=== PATIENT | female | born 1965 | race Caucasian/White ===

== ENCOUNTER → 2022-07-25 14:14 | Outpatient (BNVA) | payer MEDICAID, SELFPAY | PROVIDERS: PCP Internal Medicine Medical Oncology; Visit Provider Internal Medicine Pulmonary Disease | DX: J44.9 Chronic obstructive pulmonary disease, unspecified (principal); R91.8 Other nonspecific abnormal finding of lung field | CPT/HCPCS: 99202 ==

== ENCOUNTER 2022-08-08 13:45 | Outpatient (REF) | payer MEDICAID, SELFPAY ==
--- NOTE | ~2022-08-08 | CT_ITS ---
EXAMINATION: CT CHEST WITHOUT CONTRAST CLINICAL INFORMATION: Other nonspecific abnormal finding of lung field. COMPARISON: None TECHNIQUE: Multidetector volumetric CT imaging of the chest was done. Axial MIP volume rendering provided. Sagittal and coronal reformatted images were obtained. This CT examination was performed using dose optimization techniques as appropriate, variously including the following: *Automated exposure control *Adjustment of mA and/or kV according to patient size (this includes techniques or standardized protocols for targeted exams where dose is matched to indication/reason for exam; i.e. extremities or head) *Use of iterative reconstruction technique DLP: 272 mGy-cm FINDINGS: LUNGS: Moderate paraseptal and centrilobular emphysematous change of lungs. Bilateral apical pleural-parenchymal scarring and thickening. No acute airways disease. Central bronchial airways are open. No bronchiectasis. Lung Nodules: 1. There are multiple scattered calcified granuloma in the lungs bilateral. 2. There is a smooth bordered noncalcified 3 mm nodule left lower lobe image 283/531 series 6. 3. Smooth bordered 3 mm nodule associated with the right major fissure likely a subpleural lymph node. Image 334/531 series 6. MEDIASTINUM: The mediastinum is normal. CORONARY ARTERY CALCIFICATION: Minimal coronary artery calcifications. PLEURA: There is no pleural effusion. No pleural mass or thickening. AXILLA: No lymphadenopathy. UPPER ABDOMEN: Status post cholecystectomy. No abnormality of the visualized portions of the solid organs in the upper abdomen. OSSEOUS STRUCTURES: Unremarkable. CT/CT chest wo IV con IMPRESSION: 1. Emphysematous change of lungs. 2. Multiple calcified granulomas. 3. 3 mm nodule left lower lobe. 3 mm pleural-based nodule right major fissure likely a subpleural lymph node. Consider followup CT scan in 12 months. 2017 Fleischner Society Recommendations for Lung Nodule(s): Follow-Up based on size (average of long- and short-axis diameters). Use most suspicious nodule for followup. Multiple Solid lung nodules < 6 mm: Follow up management based on most suspicious nodule. In a low-risk patient, no routine follow-up imaging is recommended. In a high-risk patient, a non-contrast Chest CT at 12 months is optional. If performed and the nodule is stable at 12 months, no further follow-up is recommended. These guidelines do not apply to patients younger than 35 years, immunocompromised patients, and patients with cancer. F/u in patients with significant comorbidities as clinically warranted. For lung cancer screening, adhere to Lung-RADS guidelines. Reference: Radiology. 2017 Sloan; 284(1):228-243 Fleischner guidelines were followed.
== END 2022-08-08 13:46 | disposition home or self-care (01) ==
LOC: HO.CT 13:45
PROVIDERS: PCP Internal Medicine Medical Oncology; Visit Provider Internal Medicine Pulmonary Disease
DX: R91.8 Other nonspecific abnormal finding of lung field (principal)
CPT/HCPCS: 71250

== ENCOUNTER 2022-08-12 14:48 | Outpatient (REF) | payer MEDICAID, SELFPAY ==
--- NOTE | 2022-08-12 16:08 | PFT_ITS ---
Forced vital capacity 77%, FEV1 59%, FEV1/FVC ratio 60. FEF25/75 32%, and MVV 55%. Post bronchodilator therapy there, is a slight improvement in FEV1 and significant improvement in GBI33-47. Total lung capacity 106% and residual volume 138%. Diffusion capacity 75%. CONCLUSION: Moderately severe obstructive airway disorder. Partial reversibility with bronchodilator therapy is noted. Clinical correlation recommended. MD MARY Garsia/PATRICE / [id number]
== END 2022-08-12 14:49 | disposition home or self-care (01) ==
LOC: HO.RESP 14:48
PROVIDERS: PCP Internal Medicine Medical Oncology; Visit Provider Internal Medicine Pulmonary Disease
DX: J44.9 Chronic obstructive pulmonary disease, unspecified (principal); R06.00 Dyspnea, unspecified
CPT/HCPCS: 94060; 94727; 94729

== ENCOUNTER → 2022-08-13 15:10 | Outpatient (BNVA) | payer MEDICAID, SELFPAY | PROVIDERS: PCP Internal Medicine Medical Oncology; Visit Provider Internal Medicine Pulmonary Disease | DX: J44.9 Chronic obstructive pulmonary disease, unspecified (principal); R91.8 Other nonspecific abnormal finding of lung field | CPT/HCPCS: 99212 ==

== ENCOUNTER → 2022-12-05 14:14 | Outpatient (BNVA) | payer MEDICAID, SELFPAY | PROVIDERS: PCP Internal Medicine Medical Oncology; Visit Provider Internal Medicine Pulmonary Disease | DX: J44.9 Chronic obstructive pulmonary disease, unspecified (principal); R91.8 Other nonspecific abnormal finding of lung field | CPT/HCPCS: 99212 ==

== ENCOUNTER 2023-03-31 12:44 | Outpatient (REF) | payer MEDICAID, SELFPAY ==
--- NOTE | ~2023-03-31 | CT_ITS ---
EXAMINATION: CT CHEST WITHOUT CONTRAST CLINICAL INFORMATION: Other nonspecific abnormal finding of lung kimble. COMPARISON: None available. TECHNIQUE: Multidetector volumetric CT imaging of the chest was done. Axial MIP volume rendering provided. Sagittal and coronal reformatted images were obtained. This CT examination was performed using dose optimization techniques as appropriate, variously including the following: *Automated exposure control *Adjustment of mA and/or kV according to patient size (this includes techniques or standardized protocols for targeted exams where dose is matched to indication/reason for exam; i.e. extremities or head) *Use of iterative reconstruction technique DLP: 169 mGy-cm FINDINGS: RIVERBOAT CAPTAIN: Well-expanded lungs. LUNGS: There is mild centrilobular and paraseptal emphysema. There are multiple calcified pulmonary nodules likely granulomas throughout both lungs. There is a 3 mm noncalcified nodule left lower lobe image 320/5 and a 3 mm noncalcified nodule along right major fissure likely a subpleural lymph node image 393/5. No new nodules seen. MEDIASTINUM: The thyroid lobes are symmetric and normal. The central trachea and the bronchi are widely patent. The heart size and the great vessels are normal caliber. No pericardial effusion seen. CORONARY ARTERY CALCIFICATION: None visualized on this study. PLEURA: There is no pleural effusion. No pleural mass or thickening. AXILLA: No lymphadenopathy. UPPER ABDOMEN: Visualized liver, spleen, pancreas and bilateral adrenal glands are unremarkable. The gallbladder has been surgically removed. OSSEOUS STRUCTURES: There is mild mid and lower dorsal spine spondylosis. CT/CT chest wo IV con IMPRESSION: 1. Centrilobular and paraseptal emphysema. 2. Multiple calcified pulmonary nodules likely granulomas. 3. There are 3 mm noncalcified nodules in the left lower lobe and along the right major fissure likely subpleural lymph nodes. These nodules are stable. No new nodules seen. 4. No abnormal mediastinal or axillary lymphadenopathy seen. Fleischner guidelines were followed.
== END 2023-03-31 12:45 | disposition home or self-care (01) ==
LOC: HO.CT 12:44
PROVIDERS: PCP Internal Medicine Medical Oncology; Visit Provider Internal Medicine Pulmonary Disease
DX: R91.8 Other nonspecific abnormal finding of lung field (principal)
CPT/HCPCS: 71250

== ENCOUNTER 2024-04-19 14:25 | Outpatient (AMB) | payer MEDICAID, SELFPAY ==
[2024-04-19 14:27] VITALS: BP 122/72; PULSE 95; O2SAT 93; BMI 28.9
--- NOTE | 2024-04-19 14:27 | MHC.OFFVIS ---
Vital Signs 04/19/24 14:27 Height 5 ft 3 in Weight 163 lb 2.273 oz BMI 28.9 BP 122/72 Blood Pressure Location Rt brachial Position Sitting Pulse 95 Pulse Source Doppler Pulse Oximetry (%) 93 Oxygen Delivery Method Room Air Intake Visit Reasons: Shortness of breath Allergies amoxicillin [AMOXICILLIN] Allergy (Severe, Verified 12/05/22 14:16) DIFFICULTY BREATHING, REDNESS morphine [MORPHINE] Allergy (Unknown, Verified 12/05/22 14:16) CHEST TIGHTNESS penicillin Allergy (Unknown, Uncoded 07/25/22 14:17) Unknown HPI HPI Shortness of breath: Details: 58-year-old lady, active 45+ pack-year smoker followed for COPD, pulmonary nodules, and dyspnea on exertion, lost to follow-up for 15 months.? She continues to complain of a cough productive of yellowish sputum, with significant wheezing. She has been using Anoro and albuterol MDI with reasonable symptom control. She denies recent acute exacerbations. [facility] Social History (Updated 04/19/24 @ 14:32 by Lucina Walden Moriah) Patient Tobacco Use Status: Former Tobacco user Review of Systems Const Denies daytime sleepiness, Denies excessive sweating, Denies fatigue, Denies fever(s), Denies lethargy, Denies malaise, Denies night sweats, Denies snoring and Denies weight loss Eyes Denies blurry vision and Denies itchy eyes ENT Denies nasal congestion, Denies post nasal drip, Denies sinus pain, Denies sinus pressure and Denies other ( Thrush) Card Denies chest pain, Denies pedal edema, Denies dyspnea, Denies orthopnea and Denies paroxysmal nocturnal dyspnea Resp Denies cough, Denies hemoptysis, Denies excessive phlegm production, Denies dyspnea, Denies snoring and Denies wheezing GI Denies abdominal pain and Denies heartburn Musc Denies myalgias, Denies arthralgias and Denies joint swelling Skin/Breast Denies rash Neuro Denies memory loss and Denies seizure-like activity Psych Denies abnormal sleep pattern, Denies anxiety and Denies memory loss Endo Denies excessive sweating, Denies fatigue and Denies heat intolerance Darren/Lymph Denies easy bruising Aller/Immun Denies itchy eyes, Denies seasonal rhinorrhea and Denies wheezing Physical Exam Vital Signs: Last Vital Signs Pulse 95 04/19/24 14:27 BP 122/72 04/19/24 14:27 Pulse Ox 93 04/19/24 14:27 Oxygen Delivery Method Room Air 04/19/24 14:27 BMI result Body Mass Index 28.9 Const General: no acute distress and alert Nutritional Appearance: not obese Orientation/consciousness: Other orientation findings ( oriented) HEENT Head: Yes atraumatic Eyes General: appearance normal, both eyes and all related structures Sclerae: sclerae normal EOM: EOMs intact bilaterally Neck Neck: Yes supple Lymphatic: no lymphadenopathy noted Resp Effort & Inspection: normal respiratory effort and no use of accessory muscles Auscultation: clear to auscultation bilaterally Cardio Rate: regular rate Rhythm: regular rhythm Heart sounds: no gallops, no murmurs and no rubs Skin General skin exam: other ( warm) Extrem General: No clubbing, No cyanosis and No edema Assessment & Plan Assessment & Plan (1) COPD (chronic obstructive pulmonary disease): Code(s): J44.9 - Chronic obstructive pulmonary disease, unspecified Category: Medical Plan: Reasonable control on current regimen of Anoro and albuterol MDI / duo nebs. Continue current regimen. (2) Pulmonary nodules: Code(s): R91.8 - Other nonspecific abnormal finding of lung field Category: Medical Plan: Previously abnormal CT chest. Will repeat CT chest to evaluate for evolution of underlying pulmonary nodules. Orders: Orders CT chest wo IV con Today R91.8 - Other nonspecific abnormal finding of lung field Coding Level of Care Code Est Pt Level 4 (47455) Diagnoses COPD (chronic obstructive pulmonary disease) J44.9 Pulmonary nodules R91.8
== END 2024-04-19 14:40 | disposition home or self-care (01) ==
PROVIDERS: PCP Internal Medicine Medical Oncology; Referring Provider Internal Medicine Medical Oncology; Visit Provider Internal Medicine Pulmonary Disease
DX: J44.9 Chronic obstructive pulmonary disease, unspecified (principal); R91.8 Other nonspecific abnormal finding of lung field
CPT/HCPCS: 99214

== ENCOUNTER → 2024-04-19 14:25 | Outpatient (BNVA) | payer MEDICAID, SELFPAY | PROVIDERS: PCP Internal Medicine Medical Oncology; Visit Provider Internal Medicine Pulmonary Disease | DX: J44.9 Chronic obstructive pulmonary disease, unspecified (principal); R91.8 Other nonspecific abnormal finding of lung field | CPT/HCPCS: 99212 ==

== ENCOUNTER 2025-02-24 13:04 | Outpatient (REF) | payer MEDICAID, SELFPAY ==
--- NOTE | ~2025-02-24 | CT_ITS ---
CLINICAL HISTORY: R91.8 - Other nonspecific abnormal finding of lung field CT chest without contrast Comparison: CT/SC/SR - CT CHEST WO IV CON - 08/08/22 14:18 EDT Findings: 1.2 cm hypodense right thyroid nodule is present. There is no mediastinal, hilar, or axillary lymphadenopathy. The heart is normal in size. There is no pericardial effusion. Umvr-gu-anaabztn centrilobular and paraseptal emphysema is present. Multiple small bilateral lung nodules are seen measuring up to 5 mm in the right upper lobe (axial image 12 of series 3), unchanged since prior exam. No new pulmonary nodule is identified. Biapical lung scarring is present. Limited examination of the upper abdomen demonstrates cholecystectomy clips. 1.6 cm lipid rich right adrenal gland adenoma is present. Mild degenerative changes are seen in the spine. No acute osseous abnormality is identified. No aggressive lytic or blastic lesion is seen. IMPRESSION: 1. Multiple bilateral pulmonary nodules measuring up to 5 mm in the right upper lobe, unchanged since 08/08/2022. According to Fleischner society guidelines, no additional follow-up of this nodule is needed. 2. Onnz-ew-dqmtnocl pulmonary emphysema. Consider enrollment in annual low-dose CT screening. 3. 1.6 cm lipid rich right adrenal gland adenoma. This document has been electronically signed by: Jamie Valdez on 02/25/2025 09:27:27
--- OUTSIDE RECORDS SUMMARY | 2025-02-24 15:58 | XMS_ITS ---
Author Organization Ron Bañuelos III, MD Address [address] [place] [address] [place] [address] Care Team Providers Care Merchandise Collector Name Role Phone Ron Bañuelos Primary Care Provider Medications Medication SIG (Take, Route, Fr equency, Duration) Notes Start Date End Date Status levoFLOXacin 500 MG 1 tablet Orally twic e a day for 10 days 12/28/2024 01/07/2025 Active Social History Sex Assigned At : Social History Observation Description Sex Assigned At Female Encounters Encounter Location Date Provider Diagnosis Ron Bañuelos III, MD [address] [place] [address] [place] [address] 12/28/2024 Ron Bañuelos Plan Of Treatment Medication Medication Name Sig Start Date Stop Date Notes levoFLOXacin 500 MG 1 tablet Orally twic e a day for 10 days 12/28/2024 01/07/2025 Next Appt Details Provider Name:Ron Bañuelos, 03/25/2025 03:00:00 PM, [address] [place] [address] [place], [address], Progress Notes * Judy HOLTDOB:1965 ( 59 yo F)Acc No.[id number]:12/28/2024 Patient:?Judy HOLT :1965???Age:59 Y???Sex:Female Address:[address] [place] [address] , [place], [address] * Refills? Start levoFLOXacin Tablet, 500 MG, Orally, 20 Tablet, 1 tablet, twice a day, 10 days, Refills=0 * true * Date:? Generated for Lucien stacy/Edmond/Tessasmitting on:?02/24/2025 03:58 PM EDT
--- OUTSIDE RECORDS SUMMARY | 2025-02-24 15:59 | XMS_ITS | Patient Health Record ---
Author Organization Ron Bañuelos III, MD Address [address] [place] [address] [place] [address] Care Team Providers Care Dredge Runner Name Role Phone Ron Bañuelos Primary Care Provider Allergies Allergen (clinical drug ingredient) Drug/Non Drug Allergy documented on EMR Reaction Allergy Type Onset Date Status amoxicillin Amoxicillin Unknown Drug Allergy Act issa Results Component Value Reference Range Notes URINE DIP STICK Reviewed date:03/17/2024 03:06:25 PM Interpretation: Performing Lab: Notes/Report: SG 1.025 1.005 - 1.025 pH 5.0 5.0 - 9.0 INGA Negative Negative - NIT Negative Negative - PRO 15 Negative - Trace GLU Negative Negative - KET Negative Negative - UBG 0.2 0.1 - 1.8 JEFFREY 1 0.2 - 1.3 BLD Positive Negative - Reason For Referral No Information Medications Medication SIG (Take, Route, Frequency, Duration) Notes Start Date End Date Status Triamcinolone Acetonide 0.1 % 1 application Externally Twice a day 05/23/2023 Active Anoro Ellipta 62.5-25 MCG/ACT INHALE 1 PUFF EVERY DAY Inhalation Active Ventolin HFA 108 (90 Base) MCG/ACT INHALE 1 PUFF INTO THE LUNGS EVERY 4 HOURS FOR 90 DAYS Inhalation every 4 hrs for 90 days Active traZODone HCl 100 MG TAKE 1 TABLET BY [facility] EVERYDAY AT BEDTIME for 30 Active Immunizations Vaccine Route Administration Date Status Comme nts PPD (Planted) ID Intradermal 08/10/2018 Administered Social History Tobacco Use: Social History Observation Description Date Details (start date - stop date) Current Smoker NA - NA Sex Assigned At : Social History Observation Description Sex Assigned At Female Tobacco Use/Smoking Question Answer Notes Patient is a current smoker How often do you smoke cigarettes? every day How many cigarettes a day do you smoke? 5 or les s How soon after you wake up d o you smoke your first cigarette? 6-30 minutes Are you interested in quitting? Not ready to cody t Additional Findings: Tobacco User Light cigarett e smoker ((1-9 cigs/day) Alcohol Screen Question Answer Notes Did you have a drink contain ing alcohol in the past year? Yes How often did you have a dri nk containing alcohol in the past year? 2 to 3 times a week (3 points) How many drinks did you have on a typical day when you were drinking in the past year? 1 or 2 drinks (0 point) How often did you have 6 or more drinks on one occasion in the past year? Never (0 point) Points 3 Interpretation Positive Problems Problem Type SNOMED Code ICD Code Onset Dates Problem Status W/U Status Risk Notes Problem 804345135 Overweight (E66.3) Active confirmed Her body mass index is 29. [facility]. We made a plan to lose weight at a rate of one half of a pound per week through a diet restricted in fat calories and sodium combiined with regular physical activity. Problem 576622572896249 Right hip pain (M25.551) Active confirmed The pain in her right hip is much better. She is walking without difficulty. She uses an occasional ibuprofen. She does not wish to see orthopedics. Problem 172506818 Episodic tension-type headache, not intractable (G44.219) Active confirmed The headaches have substantially resolved and no additional therapy is necessary today. Problem 91955576 Tobacco dependence (F17.200) Active confirmed She admits to 6 cigarettes per day. We have discussed various strategies for smoking cessation. Problem 93841128 COPD (chronic obstructive pulmonary disease) (J44.9) Active confirmed She continu es to smoke about 5 ciggarettes a day. Her oxygen satuuratiion today was normal. She has not had any recent exxacerbations despite it being pollen seasonn. Problem 01861187 Penicillin allergy (Z88.0) Active confirmed Problem Osteoarthritis (386772989) Osteoarthritis, unspecified osteoarthritis type, unspecified site (M19.90) Active confirmed He has mild arthritic symptoms of shoulders and hands. She is going to use acetaminophen and ibuprofen. Problem 948672710 History of cholecystectomy (Z90.49) Active confirmed Problem Urine incontinence (369305720) Urine incontinence (R32) Active confirmed She continues to have occasional urinary incontinence, primarily with coughing. She declined urology referral. Problem 184501249 Asthmatic bronchitis (J45.909) Active confirmed She denies any wheezing, but has a paroxysmal cough. She was given cough medication. A follow-up visit was arranged. 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) Active confirmed Vital Signs Heart Rate 80 /min 03/17/2024 Temperature 98.4 degrees Fahrenheit 03/17/2024 Blood pressure diastolic 76 mm Hg 03/17/2024 Height 63.5 in 03/17/2024 Blood pressure systolic 128 mm Hg 03/17/2024 Weight 164 lbs 03/17/2024 BMI 28.59 kg/m2 03/17/2024 Encounters Encounter Location Date Provider Diagnosis Ron Bañuelos III, MD [address] [place] [address] [place] [address] 03/17/2024 Ron Bañuelos COPD (chronic obstructive pulmonary disease) J44.9 ; Overweight E66.3 ; Osteoarthritis, unspecified osteoarthritis type, unspecified site M19.90 ; Encounter for screening mammogram for malignant neoplasm of breast Z12.31 and Right hip pain M25.551 Ron Bañuelos III, MD [address] [place] [address] [place] [address] 03/08/2024 Ron Bañuelos III, MD [address] [place] [address] [place] [address] 12/28/2024 Ron Bañuelos III, MD [address] [place] [address] [place] [address] 12/28/2024 Ron Bañuelos Assessments Encounter Date Diagnosis (ICD Code) Assessment Notes Treat ment Notes Treatment Clinical Notes 03/17/2024 Overweight (ICD-10 - E66.3) Her body mass index is 29. We reviewed her weight loss strateegy diet and nutrition. We made a plan to lose weight at a rate of one half of a pound per week through a diet restricted in fat calories and sodium combiined with regular physical activity. 03/17/2024 COPD (chronic obstructive pulmonary disease) (ICD-10 - J44.9) She continues to smoke about 5 ciggarettes a day. Her oxygen satuuratiion today was normal. She has not had any recent exxacerbations despite it being pollen seasonn. 03/17/2024 Osteoarthritis, unspecified osteoarthritis type, unspecified site (ICD-10 - M19.90) He has mild arthritic symptoms of shoulders and hands. She is going to use acetaminophen and ibuprofen. 03/17/2024 Encounter for screening mammogram for malignant neoplasm of breast (ICD-10 - Z12.31) She is overrdue for her mammogram which we'll schedule. 03/17/2024 Right hip pain (ICD-10 - M25.551) The pain in her right hip is much better. She is walking without difficulty. She uses an occasional ibuprofen. She does not wish to see orthopedics. Plan Of Treatment Pending Test Test Name Order Date PROFILE, FASTING (COMPREHENSIVE METABOLI C) 03/17/2024 PROFILE, RANDOM (COMPREHENSIVE METABOLIC ) 11/19/2022 LIPID PANEL 11/19/2022 LIPID PANEL 03/17/2024 CBC w DIFF 11/19/2022 CBC w DIFF 03/17/2024 XR CHEST 2 VIEW PA & LAT 01/01/2016 XR HIP LT 12/07/2018 MAMMOGRAM DIGITAL BILATERAL SCREEN 07/28 MAMMOGRAM DIGITAL BILATERAL SCREEN 07/02 MM tomosynthesis screening BI 03/17/2024 Next Appt Details Provider Name:Ron Bañuelos, 03/25/2025 03:00:00 PM, [address] [facility] [place], [place], [address], Insurance Providers Payer Name Payer Address Payer Phone Subscriber Number Group Number Insured Name Patient Relationship to Insured Coverage Start Date Coverage End Date [place] [address] [place] [id number] [phone] [id number] Judy Ramirez Self - patient is the insured Medical (General) History Medical History History ICD Code COPD chronic bronchitis history of dental infections penicillin allergy history of cholelithiasis dental extractions tobacco dependence Surgical History Surgery Date(Month/Year) [id number] dental extractions cholecystectomy 1990
--- OUTSIDE RECORDS SUMMARY | 2025-02-24 15:59 | XMS_ITS ---
Author Organization Ron Bañuelos III, MD Address [address] [place] [address] [place] [address] Care Team Providers Care Hand Tennis Ball Coverer Name Role Phone Ron Bañuelos Primary Care Provider REASON FOR VISIT Needs call back from Social History Sex Assigned At : Social History Observation Description Sex Assigned At Female Encounters Encounter Location Date Provider Diagnosis Ron Bañuelos III, MD [address] [place] [address] [place] [address] 12/28/2024 Ron Bañuelos Plan Of Treatment Next Appt Details Provider Name:Ron Bañuelos, 03/25/2025 03:00:00 PM, [address] [place] [address] [place], [address], Progress Notes * Judy HOLTDOB:1965 ( 59 yo F)Acc No.[id number]:12/28/2024 Patient:?Judy HOLT :1965???Age:59 Y???Sex:Female Address:[address] [place] [address] [place], [address] * true * Date:? Generated for Printi ng/Farickig/eTransmitting on:?02/24/2025 03:58 PM EDT
--- OUTSIDE RECORDS SUMMARY | 2025-02-24 15:59 | XMS_ITS ---
Author Organization Ron Bañuelos III, MD Address [address] [address] [place] [address] Care Team Providers Care Glassblower Name Role Phone Ron Bañuelos Primary Care Provider [phone] Allergies Allergen (clinical drug ingredient) Drug/Non Drug Allergy documented on EMR Reaction Allergy Type Onset Date Status amoxicillin Amoxicillin Unknown Drug Allergy Act issa REASON FOR VISIT follow up Medications Medication SIG (Take, Route, Frequency, Duration) Notes Start Date End Date Status Triamcinolone Acetonide 0.1 % 1 application Externally Twice a day 05/23/2023 Active Anoro Ellipta 62.5-25 MCG/ACT INHALE 1 PUFF EVERY DAY Inhalation Active traZODone HCl 100 MG TAKE 1 TABLET BY [facility] EVERY DAY AT BEDTIME Active Ventolin HFA 108 (90 Base) MCG/ACT INHALE 1 PUFF INTO THE LUNGS EVERY 4 HOURS NEEDED FOR 90 DAYS Active Social History Tobacco Use: Social History Observation [...] User Light cigarett e smoker ((1-9 cigs/day) Encounters Encounter Location Date Provider Diagnosis Ron Bañuelos III, MD [address] [place] [address] [place] [address] 07/28/2024 Ron Bañuelos Plan Of Treatment Medication Medication Name Sig Start Date Stop Date Notes Triamcinolone Acetonide 0.1 % 1 applicat ion Externally Twice a day 05/23/2023 Anoro Ellipta 62.5-25 MCG/ACT INHALE 1 P UFF EVERY DAY Inhalation traZODone HCl 100 MG TAKE 1 TABLET BY [facility] EVERY DAY AT BEDTIME Ventolin HFA 108 (90 Base) MCG/ACT INHALE 1 PUFF INTO THE LUNGS EVERY 4 HOURS NEEDED FOR 90 DAYS Next Appt Details Provider Name:Ron Bañuelos, 03/25/2025 03:00:00 PM, [address] [place] [address] DAMARI MATTHEWS, JOSETTE PIERSON, [address], Progress Notes * Judy HOLTDOB:1965 ( 59 yo F)Acc No.[id number]:07/28/2024 Progress Notes Patient:?Judy HOLT Provider:?Ron Bañuelos MD :1965???Age:58 Y???Sex:Female D ate:07/28/2024 Address:[address] [place] [address] HEATHER MATTHEWSSULLIGENT, [id number] Subjective: * Chief Complaints: * ???1. Follow up. * HPI: ???COVID-19 Screening:?Questions?Have you had any new onset fever, chills, cough, congestion, sore throat, shortness of breath, muscle aches??No ?Have you been exposed to the virus within the last 10 days??No ?Have you travelled internationally in the last 10 days??No ?Have you been exposed to COVID-19 in the past??No * ROS:?General/Constitutional:?pain?only normal aches and pains.?Chills?denies.?Fatigue?admits.?Fever?denies.?ENT:?Decreased hearing?denies.?Respiratory:?Cough?denies.?Cardiovascular:?Chest pain with exertion?denies.?Dyspnea on exertion?denies.?Shortness of breath?denies.?Gastrointestinal:?Constipation?denies.?Decreased appetite?denies.?Diarrhea?denies.?Heartburn?denies.?Nausea?denies.?Rectal bleeding?denies.?Vomiting?denies.?Hematology:?bruising?denies.?petechiae?denies.?Swollen glands?none have been noted.?Genitourinary:?Frequent urination?denies.?Musculoskeletal:?Muscle aches?denies.?Painful joints?denies.?Sciatica?denies.?Weakness?denies.?Skin:?Itching?denies.?Rash?denies.?Skin lesion(s)?denies.?Neurologic:?Difficulty speaking?denies.?Dizziness?denies.?Headache?denies.?Low back pain?denies.?Psychiatric:?Depressed mood?denies.? * Medical History:?COPD, Chron ic bronchitis, History of dental infections, Penicillin allergy, History of cholelithiasis, Dental extractions, Tobacco dependence. * Surgical History:?cholecyste ctomy 1989, dental extractions , [id number] . * Hospitalization/Major Diagno stic Procedure:?Denies Past Hospitalization. * Family History:?Father: dece ased, lung cancer, diagnosed with Cancer.?Mother: alive, OA,obesity, hypertension, sleep apnea, hyperlipidemia.?2 brother(s) , 1 sister(s) - healthy. 1 son(s) , 2 daughter(s) - healthy. .? Her brothers and sisters are well. Her father of lung cancer. Her children are healthy and well. Tony is 33, Nadege is 32 and Ai is 25. She has 5 healthy and well grandchildren. * Social History:?Tobacco Use:?Tobacco Use/Smoking?Patient is a?current smoker ?How often do you smoke cigarettes??every day ?How many cigarettes a day do you smoke??5 or less ?How soon after you wake up do you smoke your first cigarette??6-30 minutes ?Are you interested in quitting??Not ready to quit ?Additional Findings: Tobacco User?Light cigarette smoker ((1-9 cigs/day) ???She was born in [place] and lives there. She is unemployed. She had been to [place] for one year after a 15 year engagement. This was her third marriage. She has smoked cigarettes for many years but does not drink alcohol or take drugs. * Medications:?Taking Anoro El lipta 62.5-25 MCG/ACT Aerosol Powder Breath Activated INHALE 1 PUFF EVERY DAY Inhalation , Taking Triamcinolone Acetonide 0.1 % Cream 1 application Externally Twice a day , Taking Ventolin HFA 108 (90 Base) MCG/ACT Aerosol Solution INHALE 1 PUFF INTO THE LUNGS EVERY 4 HOURS NEEDED FOR 90 DAYS , Taking traZODone HCl 100 MG Tablet TAKE 1 TABLET BY MOUTH EVERY DAY AT BEDTIME , Medication List reviewed and reconciled with the patient * Allergies:?Amoxicillin. Objective: * Vitals:? * Examination: ???General Examination: ?GENERAL APPEARANCE:?pleasant, well nourished, well developed, in no acute distress, calm and relaxed.?HEAD:?atraumatic, normocephalic.?EYES:?eomi, perrla, anicteric, conjugate.?EARS:?normal.?NOSE:?septum intact.?ORAL CAVITY:?normal, unremarkable.?NECK/THYROID:?no jugular venous distention, no carotid bruit, thyroid normal.?LYMPH NODES:?no enlarged lymph nodes,spleen normal.?SKIN:?no suspicious lesions, anicteric.?HEART:?no clicks, gallops, murmurs, or rubs, regular rhythm, S1, S2 normal, no s3, or vascular bruits.?LUNGS:?clear to auscultation .?BREASTS:??no masses palpable bilaterally.?ABDOMEN:?bowel sounds normal, no ascites, no organomegaly, no mass.?RECTAL EXAM:?not examined.?MUSCULOSKELETAL:?extremities unremarkable, no clubbing, cyanosis or edema.?PERIPHERAL PULSES:?normal.?NEUROLOGIC:?alert and oriented, cranial nerves 2-12 grossly intact, deep tendon reflexes 2+ symmetrical, motor strength normal upper and lower extremities, sensory exam intact.?PSYCH:?alert, oriented.? Assessment: Plan: * Treatment: * Images: * The named appointment provid er may or may not be the originator of this progress note, and it is not deemed complete until electronically signed by the appointment provider. Sign off status: Pending * Provider:?Ron Bañuelos MD Date:?07/11 Generated for Gustavoi tawanna/Edmond/eTransmitting on:?02/24/2025 03:58 PM EDT History and Physical Notes * HPI (History of Present Illness) Category Sub-Category Detail Notes COVID-19 Screening Questions Have you had any new onset fever, chills, cough, congestion, sore throat, shortness of breath, muscle aches?: No Have you been exposed to the virus withi n the last 10 days?: No Have you travelled internationally in [facility] last 10 days?: No Have you been exposed to COVID-19 in the past?: No Examination Category Sub-Category Detail Notes General Examination GENERAL APPEARANCE: pleasant , well nourished, well developed, in no acute distress, calm and relaxed HEAD: atraumatic, normocep halic EYES: eomi, perrla, anicte laverne, conjugate EARS: normal NOSE: septum intact NECK/THYROID: no jugular venous di stention, no carotid bruit, thyroid normal HEART: no clicks, gallops, murmurs, or rubs, regular rhythm, S1, S2 normal, no s3, or vascular bruits LUNGS: clear to auscultatio n ABDOMEN: bowel sounds normal, no ascites, no organomegaly, no mass NEUROLOGIC: alert and oriented, cranial nerves 2-12 grossly intact, deep tendon reflexes 2+ symmetrical, motor strength normal upper and lower extremities, sensory exam intact SKIN: no suspicious lesion s, anicteric PERIPHERAL PULSES: normal BREASTS: no masses palpable b ilaterally MUSCULOSKELETAL: extremities unremark able, no clubbing, cyanosis or edema LYMPH NODES: no enlarged lymph no keyla,spleen normal RECTAL EXAM: not examined PSYCH: alert, oriented ORAL CAVITY: normal, unremarkable
== END 2025-02-24 13:05 | disposition home or self-care (01) ==
LOC: HO.CT 13:04
PROVIDERS: PCP Internal Medicine Medical Oncology; Visit Provider Internal Medicine Pulmonary Disease
DX: R91.8 Other nonspecific abnormal finding of lung field (principal)
CPT/HCPCS: 71250

== ENCOUNTER → 2025-02-24 13:06 | Outpatient (BNV) | payer MEDICAID, SELFPAY | PROVIDERS: PCP Internal Medicine Medical Oncology; Visit Provider Radiology Vascular & Interventional Radiology | DX: R91.8 Other nonspecific abnormal finding of lung field (principal) | CPT/HCPCS: 71250 ==

== ENCOUNTER 2025-07-05 15:20 | Outpatient (AMB) | payer MEDICAID, SELFPAY ==
--- OUTSIDE RECORDS SUMMARY | 2024-12-28 05:08 | XMS_ITS ---
Author Organization Ron Bañuelos III, MD Address [address] [place] [address] Care Team Providers Care Art Specialist Name Role Phone Ron Bañuelos Primary Care Provider REASON FOR VISIT Needs call back from Social History Sex Assigned At : Social History Observation Description Sex Assigned At Female Encounters Encounter Location Date Provider Diagnosis Ron Bañuelos III, MD [address] [place] [address] [place] [address] 12/28/2024 Ron Bañuelos Plan Of Treatment Next Appt Details Provider Name:Ron Bañuelos, 07/15/2025 02:30:00 PM, [address] [place] [address] [place], [address], Provider Name:Ron Bañuelos, 11/04/2025 02:15:00 PM, [address] [place] [address] [place], [address], Progress Notes * Judy HOLTDOB:1965 ( 59 yo F)Acc No.[id number]:12/28/2024 Patient: Judy HAMILTON :1965 A ge:59 Y S ex:Female Address:[address] [place] [address] [place], [address] * true * Date: Generated for Lucien stacy/Edmond/Robert on: 0 07/05/2025 04:13 PM EDT
--- OUTSIDE RECORDS SUMMARY | 2024-12-28 06:27 | XMS_ITS ---
Author Organization Ron Bañuelos III, MD Address [address] [address] Care Team Providers Care Restaurant And Bar Manager Name Role Phone Ron Bañuelos Primary Care Provider Medications Medication SIG (Take, Route, Fr equency, Duration) Notes Start Date End Date Status levoFLOXacin 500 MG 1 tablet Orally twic e a day for 10 days 12/28/2024 01/07/2025 Active Social History Sex Assigned At : Social History Observation Description Sex Assigned At Female Encounters Encounter Location Date Provider Diagnosis Ron Bañuelos III, MD [address] [place] [address] [place] [address] 12/28/2024 Ron Bañuelos Plan Of Treatment Medication Medication Name Sig Start Date Stop Date Notes levoFLOXacin 500 MG 1 tablet Orally twic e a day for 10 days 12/28/2024 01/07/2025 Next Appt Details Provider Name:Ron Bañuelos, 07/15/2025 02:30:00 PM, [address] [facility] [place], [address], Provider Name:Ron Bañuelos, 11/04/2025 02:15:00 PM, [address] [facility] [place], [address], Progress Notes * Judy HOLTDOB:1965 ( 59 yo F)Acc No.[id number]:12/28/2024 Patient: Judy HAMILTON :1965 A ge:59 Y S ex:Female Address:[address] [place] [address] , [facility] [place], [address] * Refills Start levoFLOXacin Tablet, 500 MG, Orally, 20 Tablet, 1 tablet, twice a day, 10 days, Refills=0 * true * Date: Generated for Lucien stacy/Edmond/Vigneshitting on: 0 07/05/2025 04:13 PM EDT
--- OUTSIDE RECORDS SUMMARY | 2025-03-25 11:00 | XMS_ITS ---
Author Organization Ron Bañuelos III, MD Address [address] [place] [address] Care Team Providers Care Vp Platforms Name Role Phone Ron Bañuelos Primary Care Provider Allergies Allergen (clinical drug ingredient) Drug/Non Drug Allergy documented on EMR Reaction Allergy Type Onset Date Status amoxicillin Amoxicillin Unknown Drug Allergy Act issa REASON FOR VISIT Annual Exam Medications Medication SIG (Take, Route, Frequency, Duration) Notes Start Date End Date Status Ventolin HFA 108 (90 Base) MCG/ACT INHALE 1 PUFF INTO THE LUNGS EVERY 4 HOURS FOR 90 DAYS Inhalation every 4 hrs Active traZODone HCl 100 MG TAKE 1 TABLET BY [facility] EVERYDAY AT BEDTIME Active Anoro Ellipta 62.5-25 MCG/ACT INHALE 1 PUFF EVERY DAY Inhalation Active Triamcinolone Acetonide 0.1 % 1 application Externally Twice a day 05/23/2023 Active Social History Tobacco Use: Social History [...] Date Provider Diagnosis Ron Bañuelos III, MD [address] [place] [address] [place] [address] 03/25/2025 Ron Bañuelos Plan Of Treatment Medication Medication Name Sig Start Date Stop Date Notes Ventolin HFA 108 (90 Base) MCG/ACT INHALE 1 PUFF INTO THE LUNGS EVERY 4 HOURS FOR 90 DAYS Inhalation every 4 hrs traZODone HCl 100 MG TAKE 1 TABLET BY [facility] EVERYDAY AT BEDTIME Anoro Ellipta 62.5-25 MCG/ACT INHALE 1 P UFF EVERY DAY Inhalation Triamcinolone Acetonide 0.1 % 1 applicat ion Externally Twice a day 05/23/2023 Next Appt Details Provider Name:Ron Bañuelos, 07/15/2025 02:30:00 PM, [address] [place] [address] DAMARI MATTHEWS, JOSETTE ROBBINS, [phone], Provider Name:Ron Bañuelos, 11/04/2025 02:15:00 PM, [address] [place] [address] [address], [place], [phone], Progress Notes * Judy HOLTDOB:1965 ( 59 yo F)Acc No.[id number]:03/25/2025 Progress Notes Patient: Judy HAMILTON Provider: Betty Bañuelos MD :1965 A ge:59 Y S ex:Female Date:03/25/2025 Address:[address] [place] [address] HEATHER MATTHEWS [id number] Subjective: * Chief Complaints: * 1 . Annual Exam. * HPI: C OVID-19 Screening: Questions H ave you had any new onset fever, chills, cough, congestion, sore throat, shortness of breath, muscle aches? N o * ROS: G eneral/Constitutional: pain o nly normal aches and pains. C hills d enies.?Fatigue a dmits. F ever d enies. E NT: Decreased hearing d enies. R espiratory: Cough d enies. C ardiovascular: Chest pain with exertion d enies. D yspnea on exertion?denies. S hortness of breath d enies. G astrointestinal: Constipation d enies. D ecreased appetite d enies.?Diarrhea d enies. H eartburn d enies. N ausea d enies. R ectal bleeding?denies. V omiting d enies. H ematology: bruising d enies. p etechiae d enies. S wollen glands n one have been noted. G enitourinary: Frequent urination d enies. M usculoskeletal: Muscle aches d enies. P ainful joints d enies. S ciatica d enies. W eakness d enies. S kin: Itching d enies. R julieth d enies. S kin lesion(s)?denies. N eurologic: Difficulty speaking d enies. D izziness d enies.?Headache d enies. L ow back pain d enies. P sychiatric: Depressed mood d enies. * Medical History: C OPD, Chronic bronchitis, History of dental infections, Penicillin allergy, History of cholelithiasis, Dental extractions, Tobacco dependence. * Surgical History: c holecystectomy 1989, dental extractions , [id number] . * Hospitalization/Major Diagno stic Procedure: D enies Past Hospitalization. * Family History: F ather: , lung cancer, diagnosed with Cancer. M other: alive, OA,obesity, hypertension, sleep apnea, hyperlipidemia. 2 brother(s) , 1 sister(s) - healthy. 1 son(s) , 2 daughter(s) - healthy. . Her brothers and sisters are well. Her father of lung cancer. Her children are healthy and well. Tony is 33, Nadege is 32 and Ai is 25. She has 5 healthy and well grandchildren. * Social History: T obacco Use: T obacco Use/Smoking P atient is a c urrent smoker H ow often do you smoke cigarettes? e very day H ow many cigarettes a day do you smoke? 5 or less H ow soon after you wake up do you smoke your first cigarette? 6 -30 minutes A re you interested in quitting? N ot ready to quit A dditional Findings: Tobacco User L ight cigarette smoker ((1-9 cigs/day) S he was born in [place] and lives there. She is unemployed. She had been to [place] for one year after a 15 year engagement. This was her third marriage. She has smoked cigarettes for many years but does not drink alcohol or take drugs. * Medications: T gertrudis Anoro Ellipta 62.5-25 MCG/ACT Aerosol Powder Breath Activated INHALE 1 PUFF EVERY DAY Inhalation , Taking Triamcinolone Acetonide 0.1 % Cream 1 application Externally Twice a day , Taking traZODone HCl 100 MG Tablet TAKE 1 TABLET BY MOUTH EVERYDAY AT BEDTIME , Taking Ventolin HFA 108 (90 Base) MCG/ACT Aerosol Solution INHALE 1 PUFF INTO THE LUNGS EVERY 4 HOURS FOR 90 DAYS Inhalation every 4 hrs , Medication List reviewed and reconciled with the patient * Allergies: A moxicillin. Objective: * Vitals: * Examination: G eneral Examination: GENERAL APPEARANCE: p leasant, well nourished, well developed, in no acute distress, calm and relaxed. HEAD: a traumatic, normocephalic. EYES: e janeth, perrla, anicteric, conjugate. EARS: n ormal. NOSE: s eptum intact. ORAL CAVITY: n ormal, unremarkable. NECK/THYROID: n o jugular venous distention, no carotid bruit, thyroid normal. LYMPH NODES: n o enlarged lymph nodes,spleen normal. SKIN: n o suspicious lesions, anicteric. HEART: n o clicks, gallops, murmurs, or rubs, regular rhythm, S1, S2 normal, no s3, or vascular bruits. LUNGS: c lear to auscultation . BREASTS: no masses palpable bilaterally. ABDOMEN: b owel sounds normal, no ascites, no organomegaly, no mass. RECTAL EXAM: n ot examined. MUSCULOSKELETAL: e xtremities unremarkable, no clubbing, cyanosis or edema. PERIPHERAL PULSES: n ormal. NEUROLOGIC: a lert and oriented, cranial nerves 2-12 grossly intact, deep tendon reflexes 2+ symmetrical, motor strength normal upper and lower extremities, sensory exam intact. PSYCH: a lert, oriented. Assessment: Plan: * Treatment: * Images: * The named appointment provid er may or may not be the originator of this progress note, and it is not deemed complete until electronically signed by the appointment provider. Sign off status: Pending * Provider: Betty Bañuelos MD Date: 0 03/25/2025 Generated for Lucien stacy/Edmond/eTransmitting on: 0 07/05/2025 04:14 PM EDT History and Physical Notes * HPI (History of Present Illness) Category Sub-Category Detail Notes COVID-19 Screening Questions Have you had any new onset fever, chills, cough, congestion, sore throat, shortness of breath, muscle aches?: No Examination Category Sub-Category Detail Notes General [...]
[2025-07-05 15:21] VITALS: BP 120/58; PULSE 94; O2SAT 94; BMI 25.3
--- NOTE | 2025-07-05 15:21 | MHC.OFFVIS ---
Vital Signs 07/05/25 15:21 Height 5 ft 3 in Weight 143 lb BMI 25.3 BP 120/58 L Blood Pressure Location Lt brachial Position Sitting Pulse 94 Pulse Source Pulse Oximeter Pulse Oximetry (%) 94 Oxygen Delivery Method Room Air Intake Visit Reasons: Pulmonary Nodules Allergies amoxicillin (AMOXICILLIN) Allergy (Severe, Verified 12/05/22 14:16) DIFFICULTY BREATHING, REDNESS morphine (MORPHINE) Allergy (Unknown, Verified 12/05/22 14:16) CHEST TIGHTNESS penicillin Allergy (Unknown, Uncoded 07/25/22 14:17) Unknown HPI HPI Pulmonary Nodules: Details: 59-year-old lady, active 45+ pack-year smoker followed for COPD, pulmonary nodules, and dyspnea on exertion, lost to follow-up for 15 months.? Patient continues to use Anoro, duo nebs, and albuterol MDI overall with reasonable control of her underlying symptoms. She does complain of recent exacerbation symptomatic with wheezing. Her follow-up CT chest showed pulmonary nodules stable for approximately 3 years. [facility] Social History (Updated 04/19/24 @ 14:32 by Lucina Walden [facility]) Patient Tobacco Use Status: Former Tobacco user Review of Systems Const Denies daytime sleepiness, Denies excessive sweating, Denies fatigue, Denies fever(s), Denies lethargy, Denies malaise, Denies night sweats, Denies snoring and Denies weight loss Eyes Denies blurry vision and Denies itchy eyes ENT Denies nasal congestion, Denies post nasal drip, Denies sinus pain, Denies sinus pressure and Denies other ( Thrush) Card Denies chest pain, Denies pedal edema, Denies dyspnea, Denies orthopnea and Denies paroxysmal nocturnal dyspnea Resp Denies cough, Denies hemoptysis, Denies excessive phlegm production, Denies dyspnea, Denies snoring and Denies wheezing GI Denies abdominal pain and Denies heartburn Musc Denies myalgias, Denies arthralgias and Denies joint swelling Skin/Breast Denies rash Neuro Denies memory loss and Denies seizure-like activity Psych Denies abnormal sleep pattern, Denies anxiety and Denies memory loss Endo Denies excessive sweating, Denies fatigue and Denies heat intolerance Darren/Lymph Denies easy bruising Aller/Immun Denies itchy eyes, Denies seasonal rhinorrhea and Denies wheezing Physical Exam Vital Signs: Last Vital Signs Pulse 94 07/05/25 15:21 BP 120/58 L 07/05/25 15:21 Pulse Ox 94 07/05/25 15:21 Oxygen Delivery Method Room Air 07/05/25 15:21 BMI result Body Mass Index 25.3 Const General: no acute distress and alert Nutritional Appearance: not obese Orientation/consciousness: Other orientation findings ( oriented) HEENT Head: Yes atraumatic Eyes General: appearance normal, both eyes and all related structures Sclerae: sclerae normal EOM: EOMs intact bilaterally Neck Neck: Yes supple Lymphatic: no lymphadenopathy noted Resp Effort & Inspection: normal respiratory effort and no use of accessory muscles Auscultation: clear to auscultation bilaterally Cardio Rate: regular rate Rhythm: regular rhythm Heart sounds: no gallops, no murmurs and no rubs Skin General skin exam: other ( warm) Extrem General: No clubbing, No cyanosis and No edema Assessment & Plan Assessment & Plan (1) COPD (chronic obstructive pulmonary disease): Code(s): J44.9 - Chronic obstructive pulmonary disease, unspecified Category: Medical Plan: Moderate to severe COPD with overall reasonable controll on current regimen of Anoro, duo nebs, and albuterol MDI. Continue current regimen. Will treat acute exacerbation with a course of prednisone. (2) Personal history of nicotine dependence: Code(s): Z87.891 - Personal history of nicotine dependence Category: Medical Plan: Results of follow-up CT chest reviewed, essentially stable pulmonary nodules over the course of the last 3 years. Will continue to follow-up with lung cancer screening program. Orders: Referrals Lung Cancer Screening Referral Z87.891 - Personal history of nicotine dependence Medications: New prednisone 40 mg (2 x 20 mg) PO DAILY 14 tabs 0RF Coding Level of Care Code Est Pt Level 4 (95643) Diagnoses COPD (chronic obstructive pulmonary disease) J44.9 Personal history of nicotine dependence Z87.891
--- OUTSIDE RECORDS SUMMARY | 2025-07-05 16:14 | XMS_ITS | Patient Health Record ---
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 Name Role Phone Ron Bañuelos Primary Care Provider Allergies Allergen (clinical drug ingredient) Drug/Non Drug Allergy documented on EMR Reaction Allergy Type Onset Date Status amoxicillin Amoxicillin Unknown Drug Allergy Act issa Results Component Value Reference Range Notes CT chest wo con (Not yet rev iewed by provider) Interpretation: Performing Lab: Notes/Report: [address] [address] [address] Scan Report Signed Patient: Judy Ramirez MR#: [id number] 3 : 1965 Acct:[id number] Age/Sex: 59 / F ADM Date: 02/24/25 Loc: HO.CT Attending Dr: Ivan Prasad MD Ordering Physician: Ivan Prasad MD Date of Service: 02/24/25 Procedure(s): CT chest wo IV con Accession Number(s): [id number] cc: Ron Bañuelos MD; Iavn Prasad MD Report Number: [id number]: Total DLP = 145.00 mGy-cm CLINICAL HISTORY: R91.8 - Other nonspecific abnormal finding of lung field CT chest without contrast Comparison: CT/IN/SR - CT CHEST WO IV CON - 08/08/22 14:18 EDT Findings: 1.2 cm hypodense right thyroid nodule is present. There is no mediastinal, hilar, or axillary lymphadenopathy. The heart is normal in size. There is no pericardial effusion. Dpbu-wk-zzrfukli centrilobular and paraseptal emphysema is present. Multiple small bilateral lung nodules are seen measuring up to 5 mm in the right upper lobe (axial image 12 of series 3), unchanged since prior exam. No new pulmonary nodule is identified. Biapical lung scarring is present. Limited examination of the upper abdomen demonstrates cholecystectomy clips. 1.6 cm lipid rich right adrenal gland adenoma is present. Mild degenerative changes are seen in the spine. No acute osseous abnormality is identified. No aggressive lytic or blastic lesion is seen. IMPRESSION: 1. Multiple bilateral pulmonary nodules measuring up to 5 mm in the right upper lobe, unchanged since 08/08/2022. According to Fleischner society guidelines, no additional follow-up of this nodule is needed. 2. Udeh-pc-mfrrqgwg pulmonary emphysema. Consider enrollment in annual low-dose CT screening. 3. 1.6 cm lipid rich right adrenal gland adenoma. This document has been electronically signed by: Jamie Valdez on 02/25/2025 09:27:27 Dictated By: Jamie Valdez MD Signed By: <Electronically signed by Jamie Valdez MD in [place]> 02/25/25927 DD/ 6 TD/TT: 02/25/25926 Hotel Desk Clerk: [place] [id number] CT Scan Report Signed Patient: Judy Ramirez MR#: [id number] 3 : 1965 Acct:[id number] Age/Sex: 59 / F ADM Date: 02/24/25 Loc: HO.CT Attending Dr: Ivan Prasad MD Ordering Physician: Ivan Prasad MD Date of Service: 02/24/25 Procedure(s): CT dionicio st wo IV con Accession Number(s): [id number] cc: Ron Bañuelos MD; Ivan Prasad MD Report Number: [id number]: Total DLP = 145.00 mGy-cm CLINICAL HISTORY: R9 1.8 - Other nonspecific abnormal finding of lung field CT chest without contrast Comparison: CT/IN/SR - CT CHEST WO IV CON - 08/08/22 14:18 EDT Findings: 1.2 cm hypodense rig ht thyroid nodule is present. There is no mediastinal, hilar, or axillary lymphadenopathy. The heart is normal in size. There is no pericardial effusion. Zapf-lm-xnegttdy chu trilobular and paraseptal emphysema is present. Multiple small bilat eral lung nodules are seen measuring up to 5 mm in the right upper lobe (ax ial image 12 of series 3), unchanged since prior exam. No new pulmonary nod ule is identified. Biapical lung scarring is present. Limited examination of the upper abdomen demonstrates cholecystectomy clips. 1.6 cm lipid rich right adrenal gland adenoma is present. Mild degenerative ch anges are seen in the spine. No acute osseous abnormality is ident ified. No aggressive lytic or blastic lesion is seen. IMPRESSION: 1. Multiple bilatera l pulmonary nodules measuring up to 5 mm in the right upper lobe, unchange d since 08/08/2022. According to Fleischner society guidelines, no addit ional follow-up of this nodule is needed. 2. Bwls-gk-vkkultee pulmonary emphysema. Consider enrollment in annual low-dose CT screening. 3. 1.6 cm lipid rich right adrenal gland adenoma. This document has be en electronically signed by: Jamie Valdez on 02/25/2025 09:27:27 Dictated By: Jamie Valdez MD Signed By: <Nallely hernandez signed by Jamie Valdez MD in [place]> 02/25/25927 DD/ 6 TD/TT: 02/25/25926 Hotel Desk Clerk: Reason For Referral No Information Medications Medication SIG (Take, Route, Frequency, Duration) Notes Start Date End Date Status Ventolin HFA 108 (90 Base) MCG/ACT INHALE 1 PUFF INTO THE LUNGS EVERY 4 HOURS FOR 90 DAYS Inhalation every 4 hrs Active traZODone HCl 100 MG TAKE 1 TABLET BY MO [facility] EVERYDAY AT BEDTIME Active Anoro Ellipta 62.5-25 MCG/ACT INHALE 1 PUFF EVERY DAY Inhalation Active Triamcinolone Acetonide 0.1 % 1 application Externally Twice a day 05/23/2023 Active levoFLOXacin 500 MG TAKE 1 TABLET BY MICHELLE TWICE A DAY FOR 10 DAYS for 10 Active Immunizations Vaccine Route Administration Date Status [...] Problem Status W/U Status Risk Notes Problem 652912952 Overweight (E66.3) Active confirmed Her body mass index is 29. We [facility] diet and nutrition. We made a plan to lose weight at a rate of one half of a pound per week through a diet restricted in fat calories and sodium combiined with regular physical activity. Problem 141330528078325 Right hip pain (M25.551) Active confirmed The pain in her right hip is much better. She is walking without difficulty. She uses an occasional ibuprofen. She does not wish to see orthopedics. Problem 250768510 Episodic tension-type headache, not intractable (G44.219) Active confirmed The headaches have substantially resolved and no additional therapy is necessary today. Problem 41482958 Tobacco dependence (F17.200) Active confirmed She admits to 6 cigarettes per day. We have discussed various strategies for smoking cessation. Problem 73068422 COPD (chronic obstructive pulmonary disease) (J44.9) Active confirmed She continu es to smoke about 5 ciggarettes a day. Her oxygen satuuratiion today was normal. She has not had any recent exxacerbations despite it being pollen seasonn. Problem 31446751 Penicillin allergy (Z88.0) Active confirmed Problem Osteoarthritis (757177123) Osteoarthritis, unspecified osteoarthritis type, unspecified site (M19.90) Active confirmed He has mild arthritic symptoms of shoulders and hands. She is going to use acetaminophen and ibuprofen. Problem 992345379 History of cholecystectomy (Z90.49) Active confirmed Problem Urine incontinence (543435273) Urine incontinence (R32) Active confirmed She continues to have occasional urinary incontinence, primarily with coughing. She declined urology referral. Problem 413065836 Asthmatic bronchitis (J45.909) Active confirmed She denies any wheezing, but has a paroxysmal cough. She was given cough medication. A follow-up visit was arranged. 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) Active confirmed Encounters Encounter Location Date Provider Diagnosis Ron Bañuelos III, MD [address] [place] [address] [place] [address] 12/28/2024 Ron Bañuelos III, MD [address] [place] [address] [place] [address] 12/28/2024 Ron Bañuelos Plan Of Treatment Pending Test Test Name Order Date PROFILE, FASTING (COMPREHENSIVE METABOLI C) 03/17/2024 PROFILE, RANDOM (COMPREHENSIVE METABOLIC ) 11/19/2022 LIPID PANEL 11/19/2022 LIPID PANEL 03/17/2024 CBC w DIFF 03/17/2024 CBC w DIFF 11/19/2022 XR CHEST 2 VIEW PA & LAT 01/01/2016 XR HIP LT 12/07/2018 MAMMOGRAM DIGITAL BILATERAL SCREEN 07/28 MAMMOGRAM DIGITAL BILATERAL SCREEN 07/02 CT chest wo con 02/25/2025 MM tomosynthesis screening BI 03/17/2024 Next Appt Details Provider Name:Ron Bañuelos, 07/15/2025 02:30:00 PM, [address] [place] [address] [place], [address], Provider Name:Ron Bañuelos, 11/04/2025 02:15:00 PM, [address] [place] [address] [address], JOSETTE ROBBINS, [address], Insurance Providers Payer Name Payer Address Payer Phone Subscriber Number Group Number Insured Name Patient Relationship to Insured Coverage Start Date Coverage End Date [place] [address] [place] [id number] [phone] [id number] Judy Ramirez Self - patient is the insured Medical (General) History Medical History History ICD Code COPD chronic bronchitis history of dental infections penicillin allergy history of cholelithiasis dental extractions tobacco dependence Surgical History Surgery Date(Month/Year) [id number] dental extractions cholecystectomy 1989
== END 2025-07-05 15:34 | disposition home or self-care (01) ==
LOC: HO.HPS 15:20
PROVIDERS: PCP Internal Medicine Medical Oncology; Visit Provider Internal Medicine Pulmonary Disease
DX: J44.9 Chronic obstructive pulmonary disease, unspecified (principal); Z87.891 Personal history of nicotine dependence
CPT/HCPCS: 99214

== ENCOUNTER → 2025-07-05 15:20 | Outpatient (BNVA) | payer MEDICAID, SELFPAY | PROVIDERS: PCP Internal Medicine Medical Oncology; Visit Provider Internal Medicine Pulmonary Disease | DX: J44.9 Chronic obstructive pulmonary disease, unspecified (principal); Z87.891 Personal history of nicotine dependence | CPT/HCPCS: 99212 ==